=== PATIENT | female | born 1945 | race Two or more races ===

== ENCOUNTER 2025-04-07 16:15 | Emergency (ER) | payer OTHER ==
[~2025-04-07] VITALS: Ht 149.9 cm; Wt 95.7 kg
[2025-04-07 16:17] VITALS: TEMP 98.2
--- NOTE | 2025-04-07 17:15 | DVH ---
XY CHEST TWO VIEWS ROUTINE CLINICAL HISTORY: COUGH COMPARISON: None TECHNIQUE: Frontal and lateral view of the chest was obtained FINDINGS: Lines and Tubes: None Lungs: No focal consolidation. Pleura: No effusion. No pneumothorax. Cardiomediastinal contours: Unremarkable Bones: No acute osseous abnormality. IMPRESSION: 1. No acute cardiopulmonary disease.
--- NOTE | 2025-04-07 17:21 | ED.PDOC ---
SOB-HPI Chief Complaint: Cough Time Seen by MD: 16:34 Reviewed notes: Nurses Notes, Medications Mode of Arrival: Ambulatory X-Ray, Labs, Meds, VS Vital Signs Date Time Temp Pulse Resp B/P (MAP) Pulse Ox O2 Delivery O2 Flow Rate FiO2 04/07/25 16:17 98.2 96 18 190/99 96 98.2 PATIENT: KATHERINE YBARRA GACCT: [id number]: [id number] : 1945 LOC: ER ROOM / BED: / AGE / SEX: 79 / F ADM STATUS: REG ER SERVICE 1643 SEPSIS Sepsis Screen Date sepsis recognized/suspect: Apr 07, 2025 Time Sepsis recognized/suspect: 1619 Recent Procedure: No On Antibiotic Therapy: No Respiratory Rate >20: No Heart Rate >90: Yes Temp<36 C (96.8 F) or >38.3 C: No SBP <90 or MAP <65 mmHG: No New Acute Mental Status Change: No Is the patient on CPAP, BIPAP,: No Physician Orders Chest Two Views Routine (04/07/25 16:43) Vital Signs Date Time Temp Pulse Resp B/P (MAP) Pulse Ox O2 Delivery O2 Flow Rate FiO2 04/07/25 16:17 98.2 96 18 190/99 96 98.2 SURYA RENDON Apr 07, 2025 17:21
[2025-04-07 18:53] VITALS: BP 145/75; PULSE 67; RESP 16; O2SAT 98
--- NOTE | 2025-04-07 18:54 | ED.PDOC ---
Eye-HPI HPI Comments 79 year old female presents to ER for evaluation of blood-streaked sputum x "3-4 months". Patients states she has been spitting of streaks of blood mixed with clear phlegm that wakes her up "one time" from her sleep intermittently x "3-4 months". Reports amount less than tablespoon amount in size, denies any pain and denies use of medications for current symptoms. Patient presents to ER afebrile, in no distress. Denies fever, body aches, chills, night sweats, fatigue, nose bleeds, weight changes, congestion, headache, recent travel, dental pain/bleeding gums or any further symptoms/complaints Chief Complaint: Cough Time Seen by MD: 18:24 Primary Care Provider: GERMAN Reviewed Notes: Nurses Notes, Medications, Allergies Allergies: Coded Allergies: NO KNOWN ALLERGIES (Unverified , 04/07/25) Information Source: Patient (AND PATIENTS SON) Mode of Arrival: Ambulatory Past Medical History PAST MEDICAL HISTORY: GERD, HTN Surgical History: Denies all surgeries ENROLLMENT SERVICES VICE PRESIDENT History: No Pertinent ENROLLMENT SERVICES VICE PRESIDENT History Family History Family History: Unknown Social History Smoker: Non-Smoker Alcohol: Denies ETOH Use Drugs: Denies Drug Use Lives In: Home Constitutional: denies: chills, diaphoresis, fatigue, fever, malaise, sweats, weakness, others EENTM: reports: others (As stated in HPI) Respiratory: denies: cough, hemoptysis, orthopnea, SOB at rest, shortness of breath, SOB with excertion, stridor, wheezing, others Cardiovascular: denies: chest pain, dizzy spells, diaphoresis, Dyspnea on exertion, edema, irregular heart beat, left arm pain, lightheadedness, palpitations, PND, syncope, others Gastrointestinal: denies: abdomen distended, abdominal pain, blood streaked bowels, constipated, diarrhea, dysphagia, difficulty swallowing, hematemesis, melena, nausea, poor appetite, poor fluid intake, rectal bleeding, rectal pain, vomiting, others Genitourinary: denies: abnormal vagina bleeding, burning, dyspareunia, dysuria, flank pain, frequency, hematuria, incontinence, pain, , vagina discharge, urgency, others Neurological: denies: dizziness, fainting, headache, left sided numbness, left sided weakness, numbness, paresthesia, pre-existing deficit, right sided numbness, right sided weakness, seizure, speech problems, tingling, tremors, weakness, others Musculoskeletal: denies: back pain, gout, joint pain, joint swelling, muscle pain, muscle stiffness, neck pain, others Integumetry: denies: bruises, change in color, change in hair/nails, dryness, laceration, lesions, lumps, rash, wounds, others Allergic/Immunocompromised: denies: Difficulty Healing, Frequent Infections, Hives, Itching, others Hematologic/Lymphatic: denies: anemia, blood clots, easy bleeding, easy bruising, swollen glands, others Endocrine: denies: excessive hunger, excessive sweating, excessive thirst, excessive urination, flushing, intolerance to cold, intolerance to heat, unex plained weight gain, unexplained weight loss, others Psychiatric: denies: anxiety, bipolar disorder, depression, hopeless, panic disorder, schizophrenia, sleepless, suicidal, others Physical Exam General Appearance: No Apparent Distress HEENT: Normal ENT Inspection, PERRL/EOMI, Pharynx Normal, TMs Normal Neck: Full Range of Motion, Non-Tender, Normal Respiratory: Chest Non-Tender, Lungs Clear, No Accessory Muscle Use, No Respiratory Distress, Normal Breath Sounds Cardiovascular: No Murmur, No Gallop, Regular Rate/Rhythm Breast Exam: Deferred Gastrointestinal: NOT DONE Genitalia: Deferred Pelvic: Deferred Rectal: Deferred Extremities: Normal capillary refill, Normal range of motion Neurologic: Alert, patient experience coordinator II-XII nml as Tested, No Motor Deficits, Normal Affect, Normal Mood, No Sensory Deficits Cerebellar Function: Normal Reflexes: Normal Skin: Dry, Normal Color, Warm Peripheral Pulses: 2+ Radial (R), 2+ Radial (L), 2+ Brachial (R), 2+ Brachial (L) Lymphatic: No Adenopathy Was a procedure done? Was a procedure done?: No Sedation Sedation?: No EENT DIFF Eye: N/A Nose: Anterior Nasal Bleed, Posterior Nasal Bleed Other Differential Diagnosis PE, TB, Cancer X-Ray, Labs, Meds, VS Vital Signs Date Time Temp Pulse Resp B/P (MAP) Pulse Ox O2 Delivery O2 Flow Rate FiO2 04/07/25 18:53 67 16 145/75 (98) 98 04/07/25 16:17 98.2 96 18 190/99 96 98.2 Lab Test 04/07/25 18:43 Range/Units White Blood Count 8.4 4.4-10.8 10^3/uL Red Blood Count 4.73 4.0-5.20 10^6/uL Hemoglobin 14.4 12.2-16.2 g/dL Hematocrit 42.3 36.0-46.0 % Mean Corpuscular Volume 89.4 80.0-100.0 fL Mean Corpuscular Hemoglobin 30.4 28.0-32.0 pg Mean Corpuscular Hemoglobin Concent 34.0 32.0-36.0 g/dL Red Cell Distribution Width 13.4 11.8-14.3 % Platelet Count 276 140-450 10^3/uL Mean Platelet Volume 8.1 6.9-10.8 fL Neutrophils (%) (Auto) 49.3 37.0-80.0 % Lymphocytes (%) (Auto) 42.1 10.0-50.0 % Monocytes (%) (Auto) 6.8 0.0-12.0 % Eosinophils (%) (Auto) 1.0 0.0-7.0 % Basophils (%) (Auto) 0.8 0.0-2.0 % Neutrophils # (Auto) 4.1 1.6-8.6 10 ^3/uL Lymphocytes # (Auto) 3.5 0.4-5.4 10 ^3/uL Monocytes # (Auto) 0.6 0-1.3 10 ^3/uL Eosinophils # (Auto) 0.1 0-0.8 10 ^3/uL Basophils # (Auto) 0.1 0-0.2 10 ^3/uL Nucleated Red Blood Cells 0.2 % Prothrombin Time 10.5 9.3-11.8 sec Prothrombin Time INR 0.99 0.9-1.15 Activated Partial Thromboplast Time 26.6 24.5-34.5 SEC Sodium Level 140 136-145 mmol/L Potassium Level 4.1 3.5-5.1 mmol/L Chloride Level 105 98-107 mmol/L Carbon Dioxide Level 26 20-31 mmol/L Anion Gap 9 5-15 Blood Urea Nitrogen 10 9-23 mg/dL Creatinine 1.04 H 0.550-1.02 mg/dL Glomerular Filtration Rate Calc 55 >90 mL/min BUN/Creatinine Ratio 9.6 L 10.0-20.0 Serum Glucose 101 74-106 mg/dL Calcium Level 9.9 8.7-10.4 mg/dL PATIENT: KATHERINE YBARRA GACCT: [id number]: [id number] : 1945 LOC: ER ROOM / BED: / AGE / SEX: 79 / F ADM STATUS: REG ER SERVICE 42 ORDERING PHYSICIAN: SURYA RENDON PROCEDURE(s): CXR2 - CHEST TWO VIEWS ROUTINE REASON: COUGH ORDER NUMBER(s): [id number], ACCESSION NUMBER(s): [id number] XY CHEST TWO VIEWS ROUTINE CLINICAL HISTORY: COUGH COMPARISON: None TECHNIQUE: Frontal and lateral view of the chest was obtained FINDINGS: Lines and Tubes: None Lungs: No focal consolidation. Pleura: No effusion. No pneumothorax. Cardiomediastinal contours: Unremarkable Bones: No acute osseous abnormality. IMPRESSION: 1. No acute cardiopulmonary disease. ATED BY: DENISE HERNADEZ Jr., DO DICTATED DATE/TIME: 04/07/251712 SIGNED BY: DENISE HERNADEZ Jr., SIGNED DATE/TIME: 04/07/251712 CC: CBC reviewed - unremarkable BMP reviewed without any significant abnormalities PT/PTT reviewed-unremarkable Chest x-ray reviewed Patient in no distress, vitals stable and well appearing prior to discharge Encouragement of drinking plenty of fluids and humidified air was discussed and advised Advised to follow up with PCP and ENT/pulmonology in 1-2 days Advised to follow up with PCP in 1-2 days Patient and patient's son verbalized understanding and agreeable with current plan of care Advised to return to ER immediately if symptoms worsen Images Reviewed?: Images reviewed and evaluated by me Time of 1ST Reevaluation: 18:02 Reevaluation 1ST: N/A Patient Education/Counseling: Diagnosis, Treatment, Prognosis, Need For Follow Up Family Education/Counseling: Diagnosis, Treatment, Prognosis, Need For Follow Up SEPSIS Sepsis Screen Date sepsis recognized/suspect: Apr 07, 2025 Time Sepsis recognized/suspect: 1619 Recent Procedure: No On Antibiotic Therapy: No Respiratory Rate >20: No Heart Rate >90: Yes Temp<36 C (96.8 F) or >38.3 C: No SBP <90 or MAP <65 mmHG: No New Acute Mental Status Change: No Is the patient on CPAP, BIPAP,: No Physician Orders Chest Two Views Routine (04/07/25 16:43) Vital Signs Date Time Temp Pulse Resp B/P (MAP) Pulse Ox O2 Delivery O2 Flow Rate FiO2 04/07/25 18:53 67 16 145/75 (98) 98 04/07/25 16:17 98.2 96 18 190/99 96 98.2 Laboratory Tests Test 04/07/25 18:43 White Blood Count 8.4 10^3/uL (4.4-10.8) Departure 1 Departure Time of Disposition: 18:51 Impression: Primary Impression: Post-nasal drip Disposition: 01 HOME / SELF CARE / HOMELESS Condition: Stable Discharged With: Other (son) Critical Care Note Critical Care Time?: No Stability Stability form required: No Heart Score Heart Score: Heart Score Response (Comments) Value History N/A 0 EKG N/A 0 Age N/A 0 Risk Factors N/A 0 Troponin N/A 0 Total 0 MICHAEL FELIX Apr 07, 2025 18:54
[2025-04-07 18:57] LABS: Hematocrit 42.3 % (36.0-46.0); Hemoglobin 14.4 g/dL (12.2-16.2); Mean Corpuscular Hemoglobin 30.4 pg (28.0-32.0); Mean Corpuscular Volume 89.4 fL (80.0-100.0); Nucleated Red Blood Cells % 0.2 %
[2025-04-07 19:02] LABS: Chloride 105 mmol/L (98-107); Potassium 4.1 mmol/L (3.5-5.1); Sodium 140 mmol/L (136-145)
[2025-04-07 19:03] LABS: Anion Gap 9 (5-15); Calcium 9.9 mg/dL (8.7-10.4); Carbon Dioxide 26 mmol/L (20-31)
[2025-04-07 19:08] LABS: BUN/Creatinine Ratio 9.6 (10.0-20.0); Blood Urea Nitrogen 10 mg/dL (9-23); Glucose 101 mg/dL (74-106)
[2025-04-07 19:13] LABS: INR 0.99 (0.9-1.15); Partial Thromboplastin Time 26.6 SEC (24.5-34.5); Prothrombin Time 10.5 sec (9.3-11.8)
== END 2025-04-07 19:31 | disposition home or self-care (01) ==
LOC: ER 16:15
DX: R09.82 Postnasal drip (principal); I10 Essential (primary) hypertension; K21.9 Gastro-esophageal reflux disease without esophagitis; D69.6 Thrombocytopenia, unspecified
CPT/HCPCS: 36415; 71046; 80048; 85025; 85610; 85730